=== PATIENT | male | born 1990 | race Caucasian/White ===

== ENCOUNTER 2018-10-05 02:49 | Emergency (ER) | payer SELFPAY ==
[~2018-10-05] VITALS: Ht 172.7 cm; Wt 70.3 kg
[2018-10-05 02:53] VITALS: BP_SYST 126
[2018-10-05 03:13] VITALS: BP_SYST 126
== END 2018-10-05 03:13 ==
LOC: SED 02:49
DX: S00.31XA Abrasion of nose, initial encounter (principal); Y04.0XXA Assault by unarmed brawl or fight, initial encounter; Y93.89 Activity, other specified; Y92.89 Other specified places as the place of occurrence of the external cause; Y99.8 Other external cause status
CPT/HCPCS: 99283